=== PATIENT | female | born 1990 | race African-American/Black ===

== ENCOUNTER 2017-12-31 10:14 | Emergency (ER) | payer MEDICAID, SELFPAY ==
[~2017-12-31] VITALS: Ht 152.4 cm; Wt 37.5 kg
[2017-12-31 10:16] VITALS: BP 123/81
== END 2017-12-31 11:01 | disposition home or self-care (01) ==
LOC: ED 10:45
DX: J02.9 Acute pharyngitis, unspecified (principal)
CPT/HCPCS: 99283

== ENCOUNTER 2018-07-08 11:39 | Emergency (ER) | payer SELFPAY ==
[~2018-07-08] VITALS: Ht 152.4 cm; Wt 39.6 kg
[2018-07-08] MEDS ORDERED: ONDANSETRON ODT 4 MG PO ONE (12:00)
[2018-07-08 12:27] LABS: BASOPHILS # (AUTO) 0.03 x10^3/uL (0-0.1); BASOPHILS % (AUTO) 1 % (0-1); EOSINOPHILS # (AUTO) 0.23 x10^3/uL (0-0.4); EOSINOPHILS % (AUTO) 4 % (1-7); LYMPHOCYTES # (AUTO) 1.68 x10^3/uL (1-3.4); LYMPHOCYTES % (AUTO) 28 % (22-44); MD NO; MEAN CORPUSCULAR HEMOGLOBIN 31.6 pg (27.0-34.8); MEAN CORPUSCULAR HGB CONC 33.7 g/dL (32.4-35.8); MEAN CORPUSCULAR VOLUME 93.9 fL (80-100); MEAN PLATELET VOLUME 9.4 fL (7.4-10.4); MONOCYTES # (AUTO) 0.74 x10^3/uL (0.2-0.8); MONOCYTES % (AUTO) 13 % (2-9); NEUTROPHILS # (AUTO) 3.27 x10^3/uL (1.8-6.8); NEUTROPHILS % (AUTO) 55 % (42-75); PLATELET COUNT 188 x10^3/uL (130-400); RED BLOOD COUNT 4.76 x10^6/uL (3.82-5.3); RED CELL DISTRIBUTION WIDTH 13.6 % (9.6-15.2)
[2018-07-08 12:37] LABS: ALBUMIN 4.5 g/dL (3.4-5.0); ANION GAP 8 mmol/L (5-15); CALCIUM 9.5 mg/dL (8.5-10.1); CHLORIDE 110 mmol/L (98-107)
[2018-07-08 12:42] LABS: CREATININE 0.81 mg/dL (0.55-1.02)
--- NOTE | 2018-07-08 12:58 | NUR ---
PT GIVEN UA CUP, PT ATTEMPTING TO PROVIDE SAMPLE.
--- NOTE | 2018-07-08 13:07 | NUR ---
LUNCH RN: BAL WALKED TO LAB AT THIS TIME.
[2018-07-08 13:42] LABS: MICROSCOPIC NOT IND
[2018-07-08 13:51] LABS: CULTURE INDICATED? NO
[2018-07-08 14:01] VITALS: BP 118/64
== END 2018-07-08 14:02 | disposition home or self-care (01) ==
LOC: ED 13:32
DX: R11.2 Nausea with vomiting, unspecified (principal)
CPT/HCPCS: 36415; 76857; 80048; 81003; 82040; 84703; 85025; 99284